=== PATIENT | female | born 1965 | race Caucasian/White ===

== ENCOUNTER 2018-03-08 01:20 | Emergency (ER) | payer MEDICAID ==
[~2018-03-08] VITALS: Ht 177.8 cm; Wt 63.5 kg
[2018-03-08 02:58] LABS: Basophils # (auto) 0 uL; Basophils % (auto) 0.6 % (0.0-2.0); Eosinophils # (auto) 0.2 uL; Lymphocytes # (auto) 1.9 uL; Mean Corpuscular Hemoglobin 25.7 pg (28.0-32.0); Monocytes # (auto) 0.4 uL; Monocytes % (auto) 7.2 % (0.0-12.0); Neutrophils # (auto) 2.7 uL
[2018-03-08 02:59] LABS: Eosinophils % (auto) 3.6 % (0.0-7.0); Hematocrit 31.5 % (36.0-46.0); Hemoglobin 10.2 g/dL (12.2-16.2); Lymphocytes % (auto) 36.5 % (10.0-50.0); Mean Corpuscular Hgb Conc. 32.4 g/dL (32.0-36.0); Mean Corpuscular Volume 79.1 fL (80.0-100.0); Neutrophils % (auto) 52.1 % (37.0-80.0); Platelet Count (auto) 274 10^3/uL (140-450); Red Blood Cells 3.98 10^6/uL (4.0-5.20); Red Cell Distribution Width 16.8 % (11.8-14.3); White Blood Cell 5.1 10^3/uL (4.4-10.8)
[2018-03-08 03:16] LABS: Albumin 3.6 g/dL (3.4-5.0); Anion Gap 6 (5-15); Blood Urea Nitrogen 11 mg/dL (7-18); Calcium 8.6 mg/dL (8.5-10.1); Carbon Dioxide 26 mmol/L (21-32); Chloride 106 mmol/L (98-107); Glucose 93 mg/dL (74-106); Potassium 3.8 mmol/L (3.5-5.1); Sodium 138 mmol/L (136-145)
[2018-03-08 03:18] LABS: Alanine Aminotransferase 17 U/L (13-56); Aspartate Aminotransferase 14 U/L (15-37); BUN/Creatinine Ratio 16.7; GFR African American > 60 mL/min; GFR Non-African American > 60 mL/min
[2018-03-08 03:23] LABS: Alkaline Phosphatase 74 U/L (45-117); Bilirubin, Total 0.2 mg/dL (0.2-1.0); Total Protein 7.2 g/dL (6.4-8.2)
[2018-03-08] MEDS ORDERED: SODIUM CHLORIDE 0.9% 1,000 ML IV ONE (03:30)
[2018-03-08 03:53] LABS: INR 0.93 (0.9-1.15); Partial Thromboplastin Time 23.1 sec (23.78-33.04)
[2018-03-08 03:57] VITALS: BP 102/69
[2018-03-08 04:27] LABS: Urine Bacteria NONE SEEN /hpf (None Seen); Urine Blood Negative /uL (Negative); Urine Mucus FEW (None Seen); Urine Specific Gravity 1.004 (1.001-1.035); Urine WBC <1 /hpf (0 - 5)
== END 2018-03-08 05:15 | disposition home or self-care (01) ==
LOC: ER 01:37
DX: I95.1 Orthostatic hypotension (principal); M19.90 Unspecified osteoarthritis, unspecified site; J45.909 Unspecified asthma, uncomplicated; R07.9 Chest pain, unspecified
CPT/HCPCS: 36415; 71046; 80053; 81001; 83880; 84484; 85025; 85610; 85730; 93005; 94761; 99284; J7030

== ENCOUNTER 2018-12-17 01:29 | Emergency (ER) | payer MEDICAID ==
[~2018-12-17] VITALS: Ht 177.8 cm; Wt 63.5 kg
[2018-12-17 07:21] LABS: Urine Bacteria NONE SEEN /hpf (None Seen); Urine Blood Negative /uL (Negative); Urine Specific Gravity 1.007 (1.001-1.035); Urine WBC 12 /hpf (0 - 5)
[2018-12-17 07:31] LABS: Basophils # (auto) 0 uL; Eosinophils # (auto) 0.2 uL; Eosinophils % (auto) 3.5 % (0.0-7.0); Hemoglobin 11.3 g/dL (12.2-16.2)
[2018-12-17 07:37] LABS: Basophils % (auto) 0.6 % (0.0-2.0); Hematocrit 34.2 % (36.0-46.0); Lymphocytes # (auto) 1.9 uL; Lymphocytes % (auto) 42.5 % (10.0-50.0); Monocytes # (auto) 0.5 uL; Monocytes % (auto) 10.6 % (0.0-12.0); Neutrophils % (auto) 42.8 % (37.0-80.0); Platelet Count (auto) 246 10^3/uL (140-450); Red Blood Cells 4.18 10^6/uL (4.0-5.20); Red Cell Distribution Width 17.9 % (11.8-14.3); White Blood Cell 4.6 10^3/uL (4.4-10.8)
[2018-12-17] MEDS ORDERED: SODIUM CHLORIDE 0.9% 500 ML IVB ONE (07:38)
[2018-12-17] MEDS ORDERED: SODIUM CHLORIDE 0.9% 1,000 ML IV ONE (07:38)
[2018-12-17] MEDS ORDERED: ALUM & MAG HYDROX-SIMETH LIQ(MAALOX) 30 ML PO ONE (07:45)
[2018-12-17] MEDS ORDERED: DONNATAL 5ml ORAL Elix (BELLADONNA ALK-PHENOBARB) PO ONE (07:45)
[2018-12-17] MEDS ORDERED: PROMETHAZINE HCL 25 MG/ML 1ML IV PRN (07:45)
[2018-12-17] MEDS ORDERED: LIDOCAINE VISCOUS 2% 15ML UD PO ONE (07:45)
[2018-12-17] MEDS ORDERED: HYDROmorphone HCL 2 MG/ML VL IV ONE (07:45)
[2018-12-17] MEDS ORDERED: FAMOTIDINE 20 MG TAB PO ONE (07:45)
[2018-12-17 07:54] LABS: Albumin 3.6 g/dL (3.4-5.0); Amylase 31 U/L (25-115); Anion Gap 6 (5-15); Blood Urea Nitrogen 11 mg/dL (7-18); Calcium 8.6 mg/dL (8.5-10.1); Carbon Dioxide 28 mmol/L (21-32); Chloride 108 mmol/L (98-107); Glucose 82 mg/dL (74-106); Lipase 114 U/L (73-393); Potassium 3.4 mmol/L (3.5-5.1); Sodium 142 mmol/L (136-145)
[2018-12-17 08:00] LABS: Alanine Aminotransferase 21 U/L (13-56); Alkaline Phosphatase 78 U/L (45-117); Aspartate Aminotransferase 20 U/L (15-37); BUN/Creatinine Ratio 17.2; Bilirubin, Total 0.2 mg/dL (0.2-1.0); GFR African American 125 mL/min; GFR Non-African American 103 mL/min; Total Protein 7.1 g/dL (6.4-8.2)
[2018-12-17 11:31] VITALS: BP 127/58
[2018-12-17] MEDS ORDERED: POTASSIUM EFFERVESENT TAB 25 MEQ PO ONE (11:45)
== END 2018-12-17 12:03 | disposition home or self-care (01) ==
LOC: ER 01:29
DX: N39.0 Urinary tract infection, site not specified (principal); E87.6 Hypokalemia; M19.90 Unspecified osteoarthritis, unspecified site; J45.909 Unspecified asthma, uncomplicated; Z90.710 Acquired absence of both cervix and uterus
CPT/HCPCS: 36415; 71046; 74176; 80053; 81001; 82150; 83690; 83735; 84443; 84484; 85025; 93005; 96360; 96361; 99284; J1170; J7030; J7060

== ENCOUNTER 2020-07-30 09:41 | Emergency (ER) | payer MEDICAID ==
[~2020-07-30] VITALS: Ht 177.8 cm; Wt 72.6 kg
[2020-07-30 09:45] VITALS: BP 137/79
[2020-07-30] MEDS ORDERED: ASPirin 81 mg TAB PO ONE (10:00)
[2020-07-30 10:39] LABS: Basophils # (auto) 0 10 ^3/uL (0-0.2); Eosinophils # (auto) 0.2 10 ^3/uL (0-0.8); Hemoglobin 10.1 g/dL (12.2-16.2); Monocytes # (auto) 0.5 10 ^3/uL (0-1.3); Neutrophils # (auto) 2.6 10 ^3/uL (1.6-8.6)
[2020-07-30 10:41] LABS: Basophils % (auto) 0.4 % (0.0-2.0); Eosinophils % (auto) 2.7 % (0.0-7.0); Hematocrit 32.4 % (36.0-46.0); Lymphocytes # (auto) 2.7 10 ^3/uL (0.4-5.4); Mean Corpuscular Hemoglobin 22.6 pg (28.0-32.0); Mean Corpuscular Hgb Conc. 31.2 g/dL (32.0-36.0); Mean Corpuscular Volume 72.4 fL (80.0-100.0); Monocytes % (auto) 8.4 % (0.0-12.0); Neutrophils % (auto) 43.5 % (37.0-80.0); Nucleated Red Blood Cells % 0.1 %; Platelet Count (auto) 329 10^3/uL (140-450); Red Blood Cells 4.47 10^6/uL (4.0-5.20); Red Cell Distribution Width 18.3 % (11.8-14.3)
[2020-07-30 11:04] LABS: Albumin 3.6 g/dL (3.4-5.0); Anion Gap 6 (5-15); Blood Urea Nitrogen 10 mg/dL (7-18); Calcium 8.9 mg/dL (8.5-10.1); Carbon Dioxide 27 mmol/L (21-32); Chloride 104 mmol/L (98-107); Glucose 94 mg/dL (74-106); Potassium 4.3 mmol/L (3.5-5.1); Sodium 137 mmol/L (136-145)
[2020-07-30 11:11] LABS: Alanine Aminotransferase 20 U/L (13-56); Alkaline Phosphatase 90 U/L (45-117); Aspartate Aminotransferase 20 U/L (15-37); BUN/Creatinine Ratio 16.9; Bilirubin, Total 0.2 mg/dL (0.2-1.0); GFR African American 137 mL/min; GFR Non-African American 113 mL/min; Total Protein 7.7 g/dL (6.4-8.2)
[2020-07-30 11:31] LABS: Urine Bacteria NONE SEEN /hpf (None Seen); Urine Blood Negative /uL (Negative); Urine Specific Gravity 1.007 (1.001-1.035); Urine WBC 5 /hpf (0 - 5)
== END 2020-07-30 12:29 | disposition home or self-care (01) ==
LOC: ER 09:41
DX: R07.89 Other chest pain (principal); F41.9 Anxiety disorder, unspecified; Z90.49 Acquired absence of other specified parts of digestive tract; Z90.710 Acquired absence of both cervix and uterus
CPT/HCPCS: 36415; 80053; 81001; 84484; 85025; 93005; 99284; J7030

== ENCOUNTER 2021-09-28 08:54 | Emergency (ER) | payer MEDICAID ==
[~2021-09-28] VITALS: Ht 177.8 cm; Wt 79.7 kg
[2021-09-28 10:15] VITALS: BP 124/62
[2021-09-28] MEDS ORDERED: ACE3T PO (10:49)
== END 2021-09-28 13:20 | disposition home or self-care (01) ==
LOC: ER 08:54
DX: S52.502A Unspecified fracture of the lower end of left radius, initial encounter for closed fracture (principal); Z90.49 Acquired absence of other specified parts of digestive tract; Z90.710 Acquired absence of both cervix and uterus; Z79.899 Other long term (current) drug therapy; W01.0XXA Fall on same level from slipping, tripping and stumbling without subsequent striking against object, initial encounter; Y93.89 Activity, other specified; Y92.89 Other specified places as the place of occurrence of the external cause; Y99.8 Other external cause status
CPT/HCPCS: 29125; 73110

== ENCOUNTER 2024-07-09 10:59 | Emergency (ER) | payer MEDICAID, SELFPAY ==
[~2024-07-09] VITALS: Ht 177.8 cm; Wt 63.7 kg
[~2024-07-09 10:59] MED LIST: ACE3T PO
[2024-07-09 11:25] VITALS: RESP 16; O2SAT 99
--- NOTE | 2024-07-09 12:10 | ED.PDOC ---
History of Present Illness HPI Comments 58-year-old female in his the ER with a prior medical history of anxiety and a chief complaint of general week. Patient reports on having double vision, dizziness, and not being able to walk in a straight line for the past day. Denies chills, fever, N/V/D, SOB, CP. No other associated symptoms, modifiers, recent injuries or sick contacts present at this time. Chief Complaint: General Weakness Time Seen by MD: 11:40 Primary Care Provider: ANAHI Morrow Notes: Nurses Notes, Medications, Allergies Allergies: Coded Allergies: NO KNOWN ALLERGIES (Unverified , 03/08/18) Home Meds Active Scripts Meclizine HCl (Meclizine 25) 25 Mg Tab, 25 MG PO DAILY for 5 Days, #5 TAB Prov:OCTAVIANO INGRAM MD 07/09/24 Acetaminophen W/ Codeine (Tylenol W/Cod #3) 1 Tab Tb, 1 TAB PO QIDP, #10 TAB 0 Refills Prov:PEGGY PETERSON 09/28/21 Information Source: Patient Mode of Arrival: Ambulatory Severity: Moderate Timing: Hours Duration: Since onset, Hours Prehospital treatment: None Past Medical History PAST MEDICAL HISTORY: Anxiety RELIABILITY TECHNOLOGIST History: No Pertinent RELIABILITY TECHNOLOGIST History Family History Family History: Unknown Social History Smoker: Non-Smoker Alcohol: Denies ETOH Use Drugs: Denies Drug Use Lives In: Home Constitutional: reports: weakness; denies: chills, diaphoresis, fatigue, fever, malaise, sweats, others EENTM: denies: blurred vision, double vision, ear bleeding, ear discharge, ear drainage, ear pain, ear ringing, eye pain, eye redness, hearing loss, mouth pain, mouth swelling, nasal discharge, nose bleeding, nose congestion, nose pain, photophobia, tearing, throat pain, throat swelling, voice changes, others Respiratory: denies: cough, hemoptysis, orthopnea, SOB at rest, shortness of breath, SOB with excertion, stridor, wheezing, others Cardiovascular: denies: chest pain, dizzy spells, diaphoresis, Dyspnea on exertion, edema, irregular heart beat, left arm pain, lightheadedness, palpitations, PND, syncope, others Gastrointestinal: denies: abdomen distended, abdominal pain, blood streaked bowels, constipated, diarrhea, dysphagia, difficulty swallowing, hematemesis, melena, nausea, poor appetite, poor fluid intake, rectal bleeding, rectal pain, vomiting, others Genitourinary: denies: abnormal vagina bleeding, burning, dyspareunia, dysuria, flank pain, frequency, hematuria, incontinence, pain, , vagina discharge, urgency, others Neurological: denies: dizziness, fainting, headache, left sided numbness, left sided weakness, numbness, paresthesia, pre-existing deficit, right sided numbness, right sided weakness, seizure, speech problems, tingling, tremors, weakness, others Musculoskeletal: denies: back pain, gout, joint pain, joint swelling, muscle pain, muscle stiffness, neck pain, others Integumetry: denies: bruises, change in color, change in hair/nails, dryness, laceration, lesions, lumps, rash, wounds, others Hematologic/Lymphatic: denies: anemia, blood clots, easy bleeding, easy bruising, swollen glands, others Endocrine: denies: excessive hunger, excessive sweating, excessive thirst, excessive urination, flushing, intolerance to cold, intolerance to heat, unexplained weight gain, unexplained weight loss, others Psychiatric: denies: anxiety, bipolar disorder, depression, hopeless, panic disorder, schizophrenia, sleepless, suicidal, others All Other Systems: Reviewed and Negative Physical Exam General Appearance: Moderate Distress, Normal HEENT: Normal ENT Inspection, Pharynx Normal, TMs Normal Neck: Full Range of Motion, Non-Tender, Normal, Normal Inspection Respiratory: Chest Non-Tender, Lungs Clear, No Accessory Muscle Use, No Respiratory Distress, Normal Breath Sounds Cardiovascular: No Edema, No JVD, No Murmur, No Gallop, Normal Peripheral Pulses, Regular Rate/Rhythm Breast Exam: Deferred Gastrointestinal: No Organomegaly, Non Tender, No Pulsatile Mass, Normal Bowel Sounds, Soft Genitalia: Deferred Pelvic: Deferred Rectal: Deferred Extremities: No calf tenderness, Normal capillary refill, Normal inspection, Normal range of motion, Non-tender, No pedal edema Musculoskeletal : Apperance: Normal Neurologic: Alert, flight agent II-XII nml as Tested, No Motor Deficits, Normal Affect, Normal Mood, No Sensory Deficits Cerebellar Function: Normal Reflexes: Normal Skin: Dry, Normal Color, Warm Peripheral Pulses: 3+ Radial (R), 3+ Radial (L) Lymphatic: No Adenopathy Was a procedure done? Was a procedure done?: No Differential Dx Considerations may include: TIA X-Ray, Labs, Meds, VS Vital Signs Date Time Temp Pulse Resp B/P (MAP) Pulse Ox O2 Delivery O2 Flow Rate FiO2 07/09/24 11:25 16 99 Room Air* 0 21 07/09/24 11:10 91 07/09/24 10:59 98.0 108 16 167/80 (109) 99 98.0 Lab Test 07/09/24 11:11 Range/Units POC Glucose 107 H 70-106 mg/dl Patient alert. Complaining of dizziness pain CT of the head reviewed does not show any acute changes. Blood pressure slightly elevated. Blood sugar within normal limits. Has good muscle strength. Ambulating. Nose speech deficiencies. Good skin color. No sepsis. Possible autonomic disorder. Was given prescription of meclizine. Explained to the patient about her condition. Was told to follow up with her primary care physician. Was told to come back if there is any problem. Time of 1ST Reevaluation: 12:10 Reevaluation 1ST: Improved Patient Education/Counseling: Diagnosis, Treatment, Prognosis Family Education/Counseling: No Family Present Departure 1 Departure Time of Disposition: 12:20 Impression: Primary Impression: TIA (transient ischemic attack) Additional Impression: Autonomic disorder Disposition: 01 HOME / SELF CARE / HOMELESS Condition: Good e-Prescriptions Meclizine HCl (Meclizine 25) 25 Mg Tab 25 MG PO DAILY for 5 Days, #5 TAB Prov: OCTAVIANO INGRAM MD 07/09/24 Discharged With: Self Critical Care Note Critical Care Time?: No Stability Stability form required: No Heart Score Heart Score: Heart Score Response (Comments) Value History N/A 0 EKG N/A 0 Age N/A 0 Risk Factors N/A 0 Troponin N/A 0 Total 0 I personally scribed for OCTAVIANO INGRAM MD ([email or web address]) on 07/09/24 at 12:10. Electronically submitted by Hu Kent ([email or web address]). OCTAVIANO INGRAM MD July 09, 2024 12:10
--- NOTE | 2024-07-09 12:18 | DVH ---
EXAM: CT HEAD WITHOUT CONTRAST INDICATION: dizzy TECHNIQUE: CT of the head without intravenous contrast. Radiation Dose : 1. Head: CT Dose: CTDI volume is 54.33 mGy. Dose-length product is 963.42 mGy*cm The dose indicators for CT are the volume Computed Tomography (CT) Dose Index (CTDIvol) and the Dose Length Product (DLP), and are measured in units of mGy and mGy-cm, respectively. These indicators are not patient dose, but values generated from the CT scanner acquisition factors. The report includes radiation exposure data for exposures received during this examination. COMPARISON: None FINDINGS: There is no evidence of acute intracranial hemorrhage, extra-axial collection, mass effect, midline s hift, herniation or hydrocephalus. The ventricles, sulci and cisterns are age appropriate. The kline-white differentiation is intact. Patchy periventricular and subcortical white matter hypoattenuation is nonspecific but may be related to small vessel ischemic disease. The visualized paranasal sinuses and mastoid air cells are clear. The surrounding soft tissues and osseous structures are unremarkable. IMPRESSION: 1. No acute intracranial abnormality. Radiation optimization: All CT scans at this facility use at least one of these dose optimization mitchell hniques: automated exposure control mA and/or kV adjustment per patient size (includes targeted exam s where dose is matched to clinical indication) or iterative reconstruction.
[2024-07-09] MEDS ORDERED: MECL1TAB42 PO (12:21)
[2024-07-09] MEDS: MECLIZINE HCL 25 MG TAB PO ONE (12:41)
[2024-07-09 12:56] VITALS: BP 111/71; PULSE 67; RESP 20; TEMP 98; O2SAT 97
--- NOTE | 2024-07-10 07:24 | ECG ---
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
== END 2024-07-09 13:00 | disposition home or self-care (01) ==
LOC: ER 10:59
DX: G45.9 Transient cerebral ischemic attack, unspecified (principal); G90.9 Disorder of the autonomic nervous system, unspecified; F41.9 Anxiety disorder, unspecified
CPT/HCPCS: 70450; 82947; 93005; 99284; J8597; 82962